=== PATIENT | female | born 1965 | race Caucasian/White ===

== ENCOUNTER 2016-10-20 20:35 | Emergency (ER) | payer OTHER ==
[~2016-10-20] VITALS: Ht 180.3 cm; Wt 72.7 kg
[2016-10-20 20:41] VITALS: BP 118/83; PULSE 98; RESP 20; O2SAT 98
--- NOTE | 2016-10-20 20:52 | ED.REPORT ---
HPI-Back Pain 40 and Over Date of Service Oct 20, 2016 ED Provider: Dr. Wilson Pt is a 51 year old female with a hx of neck surgery and chronic back pain presenting to the ED complaining of back pain onset at 1630 today when she sat on a cushion. She denies numbness, a fall or hx of cancer. She does not have any saddle anesthesia, loss of bowel or bladder control, or any weakness Nursing Notes Stated Complaint: BACK PAIN Chief Complaint: Back Pain or Injury Nursing Notes Reviewed: Yes Allergies: Coded Allergies: codeine (Verified Allergy, Intermediate, Hives, 10/20/16) varenicline (Verified Adverse Reaction, Severe, made me go crazy, 10/20/16) metronidazole (Verified Adverse Reaction, Unknown, cant remember reaction , 10/20/16) General Time Seen by MD: 20:52 Chief Complaint Back pain Hx Obtained From: Patient Arrived By: Walk-in Sudden in Onset?: Yes Onset Occurred: 5 - 8 hours ago Location: : Generalized Quality: Painful Severity: Current: Severe Severity: Maximum: Severe Recent Healthcare: No recent doctor visit, No recent hospitalization Similar Sx Previous: Yes Past Medical History Past Medical History Chronic back pain Past Surgical History Laminectomy of C3,4,5,6 and 7 per pt. Smoking History Former Smoker Ambulatory Status Independent Review of Systems Review of Systems Note: No saddle anesthesia Female: Denies: Incontinence, Urination decreased Musculoskeletal: Reports: Back pain Neurologic: Denies: Numbness, Weakness Complete sys rev & neg: except as marked. Physical Exam Initial Vital Signs Vital Signs (First) Date Time Temp Pulse Resp B/P Pulse Ox O2 Delivery O2 Flow Rate FiO2 10/20/16 20:41 36.3 98 20 118/83 98 Room Air Initial VS: Reviewed Head / Eyes: Atraumatic, Normocephalic, PERRL ENT: Mucous membranes moist, Conjunctiva normal, No scleral icterus Neck: Supple, Non-tender, Full range of motion Extremities: Vascular intact, Neuro intact, No swelling, No tenderness Skin: Warm, Dry, No cyanosis Psychiatric: Mood/affect normal, Behavior normal, Normal thought content General/Constitutional: Awake, Alert, Well appearing Moderate distress due to pain Respiratory / Chest: No respiratory distress Abdomen: No distention Neurologic: Oriented X3, Speech NL, No motor deficits, No sensory deficits, Reflexes equal bilat Re-Eval/Medical Decision Med Decision/Clinical Course No evidence of cord syndrome or myelopathy. No saddle anesthesia, motor weakness or urine retention. Pain adequately controlled. Discharge home with a short course of Percocet for pain. Re-Evaluation/Progress : Time of Eval: 22:05 Patient Status: Condition improved Re-Evaluation/Progress Note: Discussed plan for discharge. Pt understands and agrees with plan. Pt lying flat laughing. Neurologically intact and ready to go home. Counseled Regarding: Diagnosis, Lab results, Need for follow-up, When/why to return to ED Discharge & Departure Shift Change Sign-Out Response to Therapy: Improved Impression: Primary Impression: Low back pain Chronicity: acute Back pain laterality: midline Sciatica presence: without sciatica Qualified Code: M54.5 - Low back pain Disposition: Home Discharge Condition All VS Reviewed: Yes Condition: Improved Patient Instructions: Low Back Strain (ED), Acute Low Back Pain (ED) Additional Instructions: Take 1-2 Percocet every 6 hours as needed for severe pain. Take Naprosyn twice daily for moderate pain. Rest your back for a few days. Do not drive or drink alcohol or consume acetaminophen while taking the Percocet. Read the aftercare instructions given. Return if any problems or any worsening symptoms. Return if you develop any weakness, numbness or loss of bowel or bladder control or urine retention. Call your primary care physician on Sunday to set up follow- up. Referrals: OTHER,PHYSICIAN (PCP) [facility] Attestation Portions of this note were transcribed by Montse Botello. I, Dr. Wilson personally performed the history, physical exam and medical decision-making; I reviewed and confirmed the accuracy of the information in the transcribed note. Signed by : Gold Mireles, 10/20/2016 and [id number]. copies to: OTHER,PHYSICIAN; [facility] Duane Wilson DO Oct 20, 2016 20:52 MONTSE BOTELLO Oct 20, 2016 21:05
[2016-10-20] MEDS ORDERED: Ketorolac 30 mg/mL 2 mL Inj IM ONE (21:00)
[2016-10-20] MEDS ORDERED: HYDROmorphone 1 mg/mL Inj IM ONE (21:00)
[2016-10-20] MEDS ORDERED: _oxyCODONE/APAP 5-325 mg Tablet PO PRN (21:00)
[2016-10-20 22:35] VITALS: BP 120/80; PULSE 96; RESP 18; O2SAT 98
== END 2016-10-20 22:21 | disposition home or self-care (01) ==
LOC: SED 20:35
DX: M54.5 Low back pain (principal); G89.29 Other chronic pain; Z98.890 Other specified postprocedural states; Z88.5 Allergy status to narcotic agent; Z88.8 Allergy status to other drugs, medicaments and biological substances; Z88.1 Allergy status to other antibiotic agents
CPT/HCPCS: 96372; 99284; J1170; J1885